=== PATIENT | female | born 1960 | race Caucasian/White ===

== ENCOUNTER 2017-03-05 08:25 | Emergency (ER) | END 2017-03-05 11:24 | disposition home or self-care (01) ==

== ENCOUNTER 2017-08-24 06:39 | Emergency (ER) | END 2017-08-24 07:27 | disposition home or self-care (01) ==

== ENCOUNTER 2018-03-15 05:41 | Emergency (ER) | payer MEDICAID ==
[~2018-03-15] VITALS: Ht 160 cm; Wt 69.5 kg
[~2018-03-15 05:41] MED LIST: BEN25 PO; PRED20TA PO
[2018-03-15 05:51] VITALS: BP 137/76; Ht 160 cm; Wt 69.5 kg
[2018-03-15] MEDS ORDERED: ALBUTEROL 0.083% (NEB) 2.5 MG/3 ML AMP HHN STA ×2 (06:14→07:23)
[2018-03-15] MEDS ORDERED: IPRATROPIUM (NEB) 0.5 MG/2.5 ML AMP HHN ONE ×3 (06:30→08:00)
[2018-03-15] MEDS ORDERED: DEXAMETHASONE 10 MG/ML 1 ML INJ IM ONE (06:30)
[2018-03-15] MEDS ORDERED: ALBU8.5H8 INH (08:21)
[2018-03-15] MEDS ORDERED: PRED20TA PO (08:21)
[2018-03-15 08:41] VITALS: PULSE 109; RESP 20
--- NOTE | 2018-03-15 09:07 | ERD ---
ER Documentation Chief Complaint Chief Complaint STATES ASTHMA ATTACK SINCE 3AM, HOME ALBUTEROL NOT HELPING HPI 57-year-old female presenting with shortness of breath. Patient states this started this morning at 10 hours prior to my evaluation. She has a dry cough. No fevers. Has been using albuterol at home with no alleviation. Denies any runny nose. No chest pain. Denies other medical problems. NKDA. Surgical history denies. Social history denies ROS All systems reviewed and are negative except as per history of present illness. Medications Home Meds Active Scripts Prednisone* (Prednisone*) 20 Mg Tab, 40 MG PO DAILY for 4 Days, TAB Prov:GISELLA SALCIDO PA-C 03/15/18 Albuterol Sulfate* (Proair HFA*) 8.5 Gm Hfa.aer.ad, 2 PUFF INH Q4, #1 INHALER Prov:GISELLA SALCIDO PA-C 03/15/18 Prednisone* (Prednisone*) 20 Mg Tab, 40 MG PO DAILY for 4 Days, TAB Prov:YAMILA WILLINGHAM PA-C 08/24/17 Diphenhydramine Hcl* (Benadryl*) 25 Mg Cap, 25 MG PO Q6, #30 CAP Prov:YAMILA WILLINGHAM PA-C 08/24/17 Allergies Allergies: Coded Allergies: Penicillins (Verified Allergy, Unknown, 03/15/18) PMhx/Soc History of Surgery: Yes (caesarian section) Anesthesia Reaction: No Hx Neurological Disorder: No Hx Respiratory Disorders: Yes (asthma) Hx Cardiac Disorders: No Hx Psychiatric Problems: No Hx Miscellaneous Medical Probl: No Hx Alcohol Use: No Hx Substance Use: No Hx Tobacco Use: No FmHx Family History: No diabetes, No coronary disease, No other Physical Exam Vitals Vital Signs Date Temp Pulse Resp B/P (MAP) Pulse Ox O2 O2 Flow FiO2 Time Delivery Rate 03/15/18 109 20 100 Room Air 08:41 03/15/18 93 28 98 21 07:45 03/15/18 84 20 94 21 06:26 03/15/18 97.7 85 22 137/76 95 05:51 (96) Physical Exam GENERAL: The patient is well-appearing, well-nourished, in no acute distress HEENT: Atraumatic. Conjunctivae are pink. Pupils equal, round, and reactive to light. There is no scleral icterus. Tympanic membranes clear bilaterally. Oropharynx clear. NECK: C-spine is soft and supple. There is no meningismus. There is no cervical lymphadenopathy. CHEST: Diffuse wheezing her auscultation. No focal rhonchi. No retractions. HEART: Regular rate and rhythm. No murmurs, clicks, rubs or gallops. Results 24 hrs Current Medications Medications Dose Sig/Christina Start Time Status Last (Trade) Ordered Route PRN Stop Time Admin Dose Reason Admin Albuterol 10 mg ONCE STAT 03/15/18 DC 03/15/18 (Proventil [facility]N 06:14 06:26 0.083% (Neb)) 03/15/18 06:15 Ipratropium 1 mg ONCE ONCE 03/15/18 DC 03/15/18 [place] [facility] 06:30 06:26 (Atrovent 03/15/18 06:31 0.02% (Neb)) 10 mg ONCE ONCE 03/15/18 DC 03/15/18 Dexamethasone IM 06:30 06:30 (Decadron) 03/15/18 06:31 Albuterol 10 mg ONCE STAT 03/15/18 DC 03/15/18 (Proventil HHN 07:23 07:44 0.083% (Neb)) 03/15/18 07:24 Ipratropium 2 mg ONCE ONCE 03/15/18 DC [place] [facility] 07:30 (Atrovent 03/15/18 07:43 0.02% (Neb)) Ipratropium 1 mg ONCE ONCE 03/15/18 DC 03/15/18 [place] [facility] 08:00 07:44 (Atrovent 03/15/18 08:01 0.02% (Neb)) Procedures/MDM ER course: Albuterol Atrovent breathing treatment given ED with Decadron. On reevaluation patient symptoms dramatically improved. DM: 57-year-old female presenting with asthma exacerbation. Patient was discharged with supportive medications. I have low suspicion for cardiac or pulmonary emergency. I have low suspicion for respiratory distress or hypoxia. Patient is discharged with supportive medications and told to follow-up with primary care within 1-2 days for close evaluation. Patient is told symptoms change or worsen to immediately return to the ER. All questions answered at discharge Departure Diagnosis: Primary Impression: Asthma Condition: Stable Patient Instructions: Asthma Referrals: [facility] YOU HAVE RECEIVED A MEDICAL SCREENING EXAM AND THE RESULTS INDICATE THAT YOU DO NOT HAVE A CONDITION THAT REQUIRES URGENT TREATMENT IN THE EMERGENCY DEPARTMENT. FURTHER EVALUATION AND TREATMENT OF YOUR CONDITION CAN WAIT UNTIL YOU ARE SEEN IN YOUR DOCTORS OFFICE WITHIN THE NEXT 1-2 DAYS. IT IS YOUR RESPONSIBILITY TO MAKE AN APPOINTMENT FOR FOLOW-UP CARE. IF YOU HAVE A PRIMARY DOCTOR --you should call your primary doctor and schedule an appointment IF YOU DO NOT HAVE A PRIMARY DOCTOR YOU CAN CALL OUR PHYSICIAN REFERRAL HOTLINE AT IF YOU CAN NOT AFFORD TO SEE A PHYSICIAN YOU CAN CHOSE FROM THE FOLLOWING [facility] [address] [facility]. [facility] [address] [facility] [facility] [address] [facility] [facility] [address] [facility] [facility] [address] [facility]. [facility]. [address] Additional Instructions: FOLLOW UP WITH YOUR PRIMARY CARE PHYSICIAN TOMORROW.Return to this facility if you are not improving as expected. GISELLA SALCIDO PA-C Mar 15, 2018 09:07
== END 2018-03-15 08:53 | disposition home or self-care (01) ==
LOC: FTE 05:41
DX: J45.901 Unspecified asthma with (acute) exacerbation (principal)
CPT/HCPCS: 94644; 94645; 96372; J1100; Z7502; Z7610